=== PATIENT | male | born 1935 | race Caucasian/White ===

== ENCOUNTER 2019-03-05 12:40 | Emergency (ER) | payer OTHER ==
--- OUTSIDE RECORDS SUMMARY | 2019-03-05 12:43 | XMS REPORT ---
:1935 Author Organization [facility] Address [address] [place] [address] [address]. [address] [place] [address] Care Team Providers Name Role Phone Unavailable Unavailable Unavailable Payers Payer Name Policy Type Policy Number Effective Date Expiration Date Problems This patient has no known problems. Allergies, Adverse Reactions, Alerts Allergy Allergy Status Severity Reaction(s) Onset Inactive Treating Comments Name Type Date Date Clinician No Known DA Active U 2016-06 Allergies -26 00:00:0 0 Medications This patient has no known medications. Results Test Description Test Time Test Comments Text Results Atomic Results Result Comments - MRI L-SPINE W/O CONT 2019-02-27 15:46:00 Patient Name: ZEKE VAZQUEZ Unit No: [id number] EXAMS: CPT CODE: [id number] MRI L-SPINE W/O CONT [id number] DIAGNOSIS: There is a large postoperative epidural hematoma which extends from just distal to L2-3 to just below L5-S1. Severe posterior compression of the thecal sac is seen slightly greater on the left side. Central laminectomy has been performed from L3-4 to L5-S1. COMMENT: COMPARISON: December 02, 2018 Scans were performed in the sagittal and axial planes utilizing T1, T2 and inversion recovery images. Endplate and disc degeneration is seen from T12 to S1. There is a central disc herniation with cephalad extrusion at L3-4 and disc bulges at L1-2, L4-5 and L5-S1. The description these findings assumes a normal count of 5 lumbar type vertebra. at 1546 Reported and signed by: Aydin Tafoya MD CC: Ariela Chaney M.D. Technologist: NIKUNJ BARRERA MRI Transcribed D/ (4852) Emmy [facility] NAME: ZEKE VAZQUEZ [address] [facility] PHYS: Jose Rothman MD : 1935 AGE: 83 SEX: M [place], [place] [address] LOC: Y.513 A PHONE #: [phone] EXAM DATE: 02/26/2019 STATUS: ADM IN FAX #: [phone] RAD #: D/C DT PAGE 1 Signed Report Patient Name: ZEKE VAZQUEZ Unit No: [id number] EXAMS: CPT CODE: [id number] MRI L-SPINE W/O CONT [id number] <Continued> Orig Print D/T: S: 02/27/2019 (6301) [facility] NAME: ZEKE VAZQUEZ [address] [facility] PHYS: Jose Rothman MD : 1935 AGE: 83 SEX: M [place] [address] LOC: Y.513 A PHONE #: [phone] EXAM DATE: 02/26/2019 STATUS: ADM IN FAX #: [phone] RAD #: D/C DT PAGE 2 Signed Report BASIC METABOLIC PANEL 2019-02-26 10:19:00 Test Item Value Reference Range Comments SODIUM (test code=NA) 142 mEq/L 135-145 POTASSIUM (test code=K) 5.1 mEq/L 3.5-5.0 CHLORIDE (test code=CL) 102 mEq/L 100-115 CARBON DIOXIDE (test code=CO2) 27 mEq/L 22-31 GLUCOSE (test code=GLU) 134 mg/dL 65-110 BLOOD UREA NITROGEN (test 30 mg/dL 7-18 code=BUN) GLOMERULAR FILTRATION RATE (test 71.4 >60 Unit of measure: mL/min/1.73 code=GFR) [id number] Range:Healthy Adults >90 mL/min/1.73 m2 For Chronic Kidney Disease: Stage II Mild Decrease in GFR 60-90 Stage III Moderate Decrease in GFR 30-59 Stage IV Severe Decrease in GFR 15-29 Stage V Kidney Failure <15Unit of measure: mL/min/1.73 [id number] Range:Healthy Adults >90 mL/min/1.73 m2 For Chronic Kidney Disease: Stage II Mild Decrease in GFR 60-90 Stage III Moderate Decrease in GFR 30-59 Stage IV Severe Decrease in GFR 15-29 Stage V Kidney Failure <15 CREATININE (test code=CREAT) 1.0 mg/dL 0.7-1.3 CALCIUM (test code=CA) 9.2 mg/dL 8.4-10.2 BASIC METABOLIC [id number] 10:18:00 Test Item Value Reference Range Comments SODIUM (test code=NA) 142 mEq/L 135-145 POTASSIUM (test code=K) 5.1 mEq/L 3.5-5.0 CHLORIDE (test code=CL) 102 mEq/L 100-115 CARBON DIOXIDE (test code=CO2) 27 mEq/L 22-31 GLUCOSE (test code=GLU) 134 mg/dL 65-110 BLOOD UREA NITROGEN (test code=BUN) 30 mg/dL 7-18 GLOMERULAR FILTRATION RATE (test code=GFR) 71 ml/min >60 CREATININE (test code=CREAT) 1.0 mg/dL 0.7-1.3 CALCIUM (test code=CA) 9.2 mg/dL 8.4-10.2 - XR SPINE 1 V SPEC [id number] 09:18:00 Patient Name: ZEKE VAZQUEZ Unit No: [id number] EXAMS: CPT CODE: [id number] XR SPINE 1 V SPEC LEVEL 57115 1 LATERAL INTRAOPERATIVE VIEWS OF THE LUMBAR SPINE Image 1: Surgical instrumentation is seen at L3-L4 and L5-S1. at 0918 Reported and signed by: Paulo Gamez M.D. CC: Ariela Chaney M.D. Technologist: SKIP KAPADIA (RT.R) Transcribed D/T: (0918) Bria.SULEMA [facility] NAME: ZEKE VAZQUEZ [address] [facility] PHYS: Jose Rothman MD : 1935 AGE: 83 SEX: M [place], [place] [address] LOC: Y.O21 A PHONE #: [phone] EXAM DATE: 02/25/2019 STATUS: REG [facility] FAX #: [phone] RAD #: D/C DT PAGE 1 Signed Report Patient Name: ZEKE VAZQUEZ Unit No: [id number] EXAMS: CPT CODE: [id number] XR SPINE 1 V SPEC LEVEL 12373 <Continued> Orig Print D/T: S: 02/26/2019 (0921) [facility] NAME: ZEKE VAZQUEZ [address] [facility] PHYS: Jose Rothman MD : 1935 AGE: 83 SEX: M [place] [address] LOC: Y.O21 A PHONE #: [phone] EXAM DATE: 02/25/2019 STATUS: REG [facility] FAX #: [phone] RAD #: D/C DT PAGE 2 Signed ReportBASIC METABOLIC [id number] 11:20:00 Test Item Value Reference Range Comments SODIUM (test code=NA) 144 mmol/L 136-145 POTASSIUM (test code=K) 4.0 mmol/L 3.5-5.1 CHLORIDE (test code=CL) 106.0 mmol/L 98-107 CARBON DIOXIDE (test 31.8 mmol/L 21-32 code=CO2) GLUCOSE (test code=GLU) 101 mg/dL 70-110 BLOOD UREA NITROGEN (test 22 mg/dL 7-18 code=BUN) GLOMERULAR FILTRATION RATE 91.0 >60 Unit of measure: (test code=GFR) mL/min/1.73 [id number] Range:Healthy Adults >90 mL/min/1.73 m2 For Chronic Kidney Disease: Stage II Mild Decrease in GFR 60-90 Stage III Moderate Decrease in GFR 30-59 Stage IV Severe Decrease in GFR 15-29 Stage V Kidney Failure <15 CREATININE (test code=CREAT) 0.81 mg/dL 0.55-1.30 CALCIUM (test code=CA) 9.5 mg/dL 8.2-10.1 CBC W/AUTO [id number] 11:14:00 Test Item Value Reference Range Comments WHITE BLOOD CELL (test code=WBC) 7.3 K/mm3 5.7-10.5 RED BLOOD CELL (test code=RBC) 4.77 M/mm3 4.2-5.4 HEMOGLOBIN (test code=HGB) 15.2 g/dL 12-16 HEMATOCRIT (test code=HCT) 45.5 % 37-47 MEAN CELL VOLUME (test code=MCV) 95 fL 80-98 MEAN CELL HGB (test code=MCH) 31.9 pg 27-34 MEAN CELL HGB CONCENTRATION (test code=MCHC) 33.4 g/dL 30.8-34.1 RED CELL DISTRIBUTION WIDTH (test code=RDW) 12.0 % 11-16 PLT (test code=PLT) 213 K/mm3 130-400 MEAN PLATELET VOLUME (test code=MPV) 12.5 fL 8.9-12.1 NEUTROPHIL % (test code=NT%) 63.4 % 45-70 LYMPHOCYTE % (test code=LY%) 23.7 % 20-40 MONOCYTE % (test code=MO%) 9.6 % 3-10 EOSINOPHIL % (test code=EO%) 1.1 % 1-5 BASOPHIL % (test code=BA%) 0.7 % 0.0-1.1 NEUTROPHIL # (test code=NT#) 4.61 K/mm3 2.00-7.50 LYMPHOCYTE # (test code=LY#) 1.72 K/mm3 1.50-4.00 MONOCYTE # (test code=MO#) 0.70 K/mm3 0.2-0.8 EOSINOPHIL # (test code=EO#) 0.08 K/mm3 0.04-0.4 BASOPHIL # (test code=BA#) 0.05 K/mm3 0.02-0.10 MANUAL DIFF REQUIRED (test code=MDIFF) NO MANUAL DIFF NUCLEATED RED BLOOD CELL (test code=NRBC) 0 % 0-0 - MRI L-SPINE W/O [id number] 09:25:00 Patient Name: ZEKE VAZQUEZ Unit No: [id number] EXAMS: CPT CODE: [id number] MRI L-SPINE W/O CONT [id number] MRI OF THE LUMBAR SPINE: DIAGNOSIS: 1. At L1-2, moderate disc degeneration. 2 mm disc bulge. Moderate central canal stenosis. Marked bony right foraminal stenosis. Moderate left foraminal stenosis. Moderate facet arthropathy.2. At L2-3, moderate disc degeneration. 2 mm right foraminal disc bulge. Moderate central canal stenosis. Moderate bilateral facet arthropathy. Moderate right foraminal mild left foraminal stenosis. 3. At L3-4, moderate disc degeneration. Grade 1 spondylolisthesis of L3 on L4. There is a large approximately 1 cm cranially migrated posterior central, left paracentral and right posterior lateral disc extrusion which impinges the right L4 nerve root in the lateral gutter and flattens the ventral thecal sac. There is likely impingement of the left L4 nerve root as well. Marked central canal stenosis. Marked bilateral facet arthropathy. Moderate bilateral foraminal stenosis. 4. At L4-5, moderate disc degeneration. Marked hypertrophic central canal stenosis secondary to thickening of ligamenta flava and marked facet arthropathy. Moderate to marked bilateral foraminal stenosis. 5. AtL5-S1, marked disc degeneration. 3 mm disc osteophyte complex flattens the ventral thecal sac. Moderate central canal stenosis. Marked bilateral facet arthropathy. Moderate to marked bilateral foraminal stenosis secondary to endplate remodeling. COMMENT: COMPARISON: No prior exams available. Sagittal T1, T2 and STIR and axial T1 and T2-weighted sequences are obtained of the lumbar spine. The lumbar vertebrae are within normal limits in signal. The findings are as above. The conus is in the expected location. at 0977 Reported and signed by: Ana Maria De La Fuente MD CC: Romie Sanchez MD Technologist: Shikha Acosta(R) Transcribed D/T: 2018 (0925) LesterGVG [facility] NAME: ZEKE VAZQUEZ [address] [facility] PHYS: MATVA.[email or web address] - Romie Sanchez : 1934 AGE: 83 SEX: M [place], [place] [address] LOC: Y.MRI PHONE #: [phone] EXAM DATE: 12/02/2018 STATUS: DEP CLI FAX #: [phone] RAD #: D/C DT PAGE 1 Signed Report Patient Name: ZEKE VAZQUEZ Unit No: [id number] EXAMS: CPT CODE: [id number] MRI L-SPINE W/O CONT [id number] <Continued&gt ;Orig Print D/T: S: 12/03/2018 (0928) [facility] NAME: ZEKE VAZQUEZ [address] [facility] PHYS: MATVA.01 - Romie Sanchez : 1934 AGE: 83 SEX: M [place], [place] [address] LOC: Y.MRI PHONE #: [phone] EXAM DATE: 12/02 STATUS: DEP CLI FAX #: [phone] RAD #: D /C DT PAGE 2 Signed Report
--- OUTSIDE RECORDS SUMMARY | 2019-03-05 12:43 | XMS REPORT ---
:1935 Author Organization [employer] Care Team Providers Name Role Phone Phuc Lewis Provider Role Unavailable Allergies, Adverse Reactions, Alerts Substance Reaction Event Type N.K.D.A. Info Not Available Non Drug Allergy Problems Problem Type Condition Code Onset Dates Condition Status Problem Primary osteoarthritis of left knee M17.12 Active Problem Other chronic pain G89.29 Active Assessment Other chronic pain G89.29 Active Assessment Primary osteoarthritis of left knee M17.12 Active Assessment Pain in left knee M25.562 Active Medications Medication Code Code Instructions Start End Status Dosage System Date Date Metoprolol FORMERLY NAMED [facility] 57264284763 50 MG Oral Active TK 1 T PO Succinate ER ONCE D. Omeprazole FORMERLY NAMED [facility] 71744995226 40 MG Oral Active TK 1 C PO QD Clopidogrel FORMERLY NAMED [facility] 57000997832 75 MG Oral Active TK 1 T PO Bisulfate QD FORMERLY NAMED [facility] 08471530551 81 MG Orally January 08, Active 1 tablet Once a day 2017 Amlodipine FORMERLY NAMED [facility] 07322375296 2.5 MG Oral Active TK 1 T PO Besylate QD Piroxicam FORMERLY NAMED [facility] 53025705288 20 MG Oral Active TK 1 C PO QD Results No Known Results Summary Purpose [employer] Submission
--- NOTE | 2019-03-05 16:09 | RAD REPORT ---
EXAM DESCRIPTION: US - Extremity Venous Uni Ltd - 03/05/2019 4:02 pm CLINICAL HISTORY: SWELLING Leg swelling and edema. COMPARISON: No comparisons FINDINGS: Right lower extremity venous system was interrogated with Doppler technique. Normal flow, compressibility and augmentation was noted. There is no DVT present. IMPRESSION: No evidence of right lower extremity deep venous thrombosis.
--- NOTE | 2019-03-05 16:34 | EDPHYS ---
Physician Documentation [facility] Name: Jatin Menjivar Age: 83 yrs Sex: Male : 1935 Arrival Date: 03/05/2019 Time: 12:42 Bed 20 Private MD: ED Physician David Freeman HPI: 03/05 14:44 This 83 yrs old Male presents to ER via Wheelchair with complaints of Leg rn Swelling. 14:44 The patient presents with swelling. The complaints affect the. Onset: The rn symptoms/episode began/occurred today. Modifying factors: The symptoms are alleviated by nothing. the symptoms are aggravated by nothing. Severity of symptoms: At their worst the symptoms were moderate, in the emergency department the symptoms are unchanged. The patient has not experienced similar symptoms in the past. Reports had back surgery last week, takes aspirin and plavix, today noticed increased leg swelling on RLE, no pain, no redness, no fever, has been using stockings as told to do so. No trauma. Has been ambulatory, fixed breakfast today, and was outside for a while when noticed swelling.. Historical: - Allergies: 12:57 No Known Allergies; hb - Home Meds: 12:57 atorvastatin 80 mg Oral tab 1 tab once daily [Active]; clopidogrel 75 mg Oral tab 1 tab hb once daily [Active]; metoprolol succinate 50 mg Oral Tb24 1 tab once daily [Active]; ranitidine HCl 150 mg Oral tab 1 tab once daily [Active]; 12:58 aspirin 81 mg Oral chew 1 tab once daily [Active]; hb - PMHx: 12:57 CVA; GERD; Hyperlipidemia; Hypertension; hb - PSHx: 12:57 Knee surgery; hb - Immunization history:: Adult Immunizations up to date. - Social history:: Smoking status: Patient/guardian denies using tobacco. - Ebola Screening: : No symptoms or risks identified at this time. - Family history:: not pertinent. - Hospitalizations: : No recent hospitalization is reported. ROS: 14:44 Constitutional: Negative for fever, chills, and weight loss, Eyes: Negative for injury, rn pain, redness, and discharge, Cardiovascular: Negative for chest pain, palpitations Respiratory: Negative for shortness of breath, cough, wheezing, and pleuritic chest pain, Abdomen/GI: Negative for abdominal pain, nausea, vomiting, diarrhea, and constipation, Back: Negative for injury and pain, MS/Extremity: Negative for injury and deformity, Skin: Negative for injury, rash, and discoloration, Neuro: Negative for headache, weakness, numbness, tingling, and seizure. Exam: 14:44 Constitutional: This is a well developed, well nourished patient who is awake, alert, rn and in no acute distress. Head/Face: Normocephalic, atraumatic. ENT: MMM Cardiovascular: Regular rate and rhythm. No pulse deficits. Respiratory: Lungs have equal breath sounds bilaterally, clear to auscultation. No increased work of breathing, no retractions or nasal flaring. Abdomen/GI: soft, non-tender MS/ Extremity: Pulses equal, no cyanosis. Neurovascular intact. Full, normal range of motion. + non-pitting edema RLE without redness/warmth/open wounds. Neuro: Awake and alert, GCS 15, oriented to person, place, time, and situation. Cranial nerves II-XII grossly intact. Motor strength 5/5 in all extremities. Sensory grossly intact. Cerebellar exam normal. Vital Signs: 12:57 BP 152 / 67; Pulse 70; Resp 16; Temp 97.4; Pulse Ox 100% on R/A; Weight 90.72 kg; hb Height 5 ft. 11 in. (180.34 cm); Pain 0/10; 14:33 BP 168 / 55; Pulse 55; Resp 16; Pulse Ox 99% ; mh5 15:50 BP 149 / 52; Pulse 55; Resp 17; Pulse Ox 97% on R/A; mh5 12:57 Body Mass Index 27.89 (90.72 kg, 180.34 cm) hb MDM: 14:14 Patient medically screened. rn 16:31 Differential diagnosis: DVT, edema. Data reviewed: vital signs, nurses notes, rn radiologic studies, doppler, and as a result, I will discharge patient. Counseling: I had a detailed discussion with the patient and/or guardian regarding: the historical points, exam findings, and any diagnostic results supporting the discharge/admit diagnosis, radiology results, the need for outpatient follow up, to return to the emergency department if symptoms worsen or persist or if there are any questions or concerns that arise at home. Response to treatment: There is no appreciated change of the patient's symptoms at this time, and as a result, I will discharge patient. Special discussion: I discussed with the patient/guardian in detail that at this point there is no indication for admission to the hospital. It is understood, however, that if the symptoms persist or worsen the patient needs to return immediately for re-evaluation. 03/05 14:26 Order name: Extremity Venous Uni Ltd ; Complete Time: 16:23 rn Administered Medications: No medications were administered Disposition: 03/05/19 16:33 Discharged to Home. Impression: Edema, unspecified. - Condition is Stable. - Discharge Instructions: Edema. - Medication Reconciliation Form, Thank You Letter, Antibiotic Education, Prescription Opioid Use form. - Follow up: Private Physician; When: As needed; Reason: Recheck today's complaints, Re-evaluation by your physician. - Problem is new. - Symptoms have improved. Signatures: Dispatcher [employer] EDMS David Freeman MD MD rn Baxter, Heather, RN RN Corrections: (The following items were deleted from the chart) 16:57 16:33 03/05/2019 16:33 Discharged to Home. Impression: Edema, unspecified. Condition is rn Stable. Forms are Medication Reconciliation Form, Thank You Letter, Antibiotic Education, Prescription Opioid Use. Follow up: Private Physician; When: As needed; Reason: Recheck today's complaints, Re-evaluation by your physician. Problem is new. Symptoms have improved. rn
--- NOTE | 2019-03-05 16:34 | ER ---
Nurse's Notes [facility] Name: Jatin Menjivar Age: 83 yrs Sex: Male : 1935 Arrival Date: 03/05/2019 Time: 12:42 Bed 20 Private MD: Diagnosis: Edema, unspecified Presentation: 03/05 12:54 Presenting complaint: Right lower extremity swelling upon waking today. Pt had back hb surgery Feb 25, had second surgery on same day for blood clot in back. Transition of care: patient was not received from another setting of care. Onset of symptoms was March 05, 2019. Risk Assessment: Do you want to hurt yourself or someone else? Patient reports no desire to harm self or others. Initial Sepsis Screen: Does the patient meet any 2 criteria? No. Patient's initial sepsis screen is negative. Does the patient have a suspected source of infection? No. Patient's initial sepsis screen is negative. Care prior to arrival: None. 12:54 Method Of Arrival: Wheelchair hb 12:54 Acuity: ZOYA 3 hb Historical: - Allergies: 12:57 No Known Allergies; hb - Home Meds: 12:57 atorvastatin 80 mg Oral tab 1 tab once daily [Active]; clopidogrel 75 mg Oral tab 1 tab hb once daily [Active]; metoprolol succinate 50 mg Oral Tb24 1 tab once daily [Active]; ranitidine HCl 150 mg Oral tab 1 tab once daily [Active]; 12:58 aspirin 81 mg Oral chew 1 tab once daily [Active]; hb - PMHx: 12:57 CVA; GERD; Hyperlipidemia; Hypertension; hb - PSHx: 12:57 Knee surgery; hb - Immunization history:: Adult Immunizations up to date. - Social history:: Smoking status: Patient/guardian denies using tobacco. - Ebola Screening: : No symptoms or risks identified at this time. - Family history:: not pertinent. - Hospitalizations: : No recent hospitalization is reported. Vital Signs: 12:57 BP 152 / 67; Pulse 70; Resp 16; Temp 97.4; Pulse Ox 100% on R/A; Weight 90.72 kg; hb Height 5 ft. 11 in. (180.34 cm); Pain 0/10; 14:33 BP 168 / 55; Pulse 55; Resp 16; Pulse Ox 99% ; mh5 15:50 BP 149 / 52; Pulse 55; Resp 17; Pulse Ox 97% on R/A; mh5 12:57 Body Mass Index 27.89 (90.72 kg, 180.34 cm) ED Course: 12:42 Patient arrived in ED. rg4 12:56 Triage completed. 12:57 Arm band placed on. 14:14 David Freeman MD is Attending Physician. rn 14:32 Patient has correct armband on for positive identification. Bed in low position. Call [facility] light in reach. Side rails up X 1. Adult w/ patient. Pulse ox on. NIBP on. 15:44 Jacob Maria, RN is Primary Nurse. sg 15:45 Awaiting: ultrasound. sg 16:08 Extremity Venous Uni Ltd US In Process Unspecified. EDMS Administered Medications: No medications were administered Outcome: 16:33 Discharge ordered by . rn 16:57 Patient left the ED. rn Signatures: Dispatcher [employer] EDMS Jacob Maria RN RN David Freeman MD MD rn Baxter, Heather, RN RN hb Garcia, Rubi 4 Mckenzie Zapien [facility]
[2019-03-05 17:31] VITALS: TEMP 97.4
[2019-03-05 17:33] VITALS: BP 149/52; O2SAT 97
== END 2019-03-05 16:57 | disposition home or self-care (01) ==
LOC: ER 12:40
DX: R60.9 Edema, unspecified (principal); I10 Essential (primary) hypertension; E78.5 Hyperlipidemia, unspecified; Z79.82 Long term (current) use of aspirin; Z86.73 Personal history of transient ischemic attack (TIA), and cerebral infarction without residual deficits
CPT/HCPCS: 93971; 99283

== ENCOUNTER 2020-10-02 07:46 | Day surgery (SDC) | payer OTHER ==
[2020-09-18 09:05] LABS: Absolute Lymphocytes (CBC) 1.9 K/uL (0.7-4.9); Basophils % 0.3 % (0-1.3); Hematocrit 41.8 % (39.6-49.0); Lymphocytes % 26.3 % (15.3-44.8); MPV 11.4 fL (7.6-11.3); RBC Red Blood Cell Count 4.46 M/uL (4.33-5.43)
[2020-09-18 09:19] LABS: BUN Blood Urea Nitrogen 26 mg/dL (7-18); Bicarbonate 29 mmol/L (21-32); Glucose Level 80 mg/dL (74-106); Potassium 4.1 mmol/L (3.5-5.1); Sodium Level 143 mmol/L (136-145)
--- NOTE | 2020-09-18 09:35 | RAD REPORT ---
EXAM DESCRIPTION: RAD - Chest Pa And Lat (2 Views) - 09/18/2020 9:01 am CLINICAL HISTORY: PREOP, pending hemorrhoid surgery, hypertension, prior CVA COMPARISON: Two view chest May 2017 TECHNIQUE: Frontal and lateral views of the chest were obtained. FINDINGS: The lungs are clear. Interstitial pattern is similar to comparison. Fullness of each hilu m also stable over this long interval. Heart size is normal and central vasculature is within normal limits. No pleural effusion or pneumothorax seen. No acute bony finding noted. No aortic abnormali ty. IMPRESSION: No acute cardiopulmonary process. No significant change from comparison study.
[2020-10-02] MEDS ORDERED: CEFOXITIN/SWI 1gm 1 GM/10 ML SYR ONE (08:45)
[2020-10-02] MEDS ORDERED: Ringers Lactate 1,000 ML IV ONE (08:45)
[2020-10-02] MEDS ORDERED: FENTANYL CITR 100 MCG/2 ML ONE (09:39)
[2020-10-02] MEDS ORDERED: propofoL 200 MG/20 ML VIAL IV ONE (09:39)
[2020-10-02] MEDS ORDERED: LIDOCAINE 2% MPF 5 ML VIAL ONE (09:41)
[2020-10-02] MEDS ORDERED: dexAMETHasone 10 MG/ML VIAL ONE (10:40)
[2020-10-02] MEDS ORDERED: GLYCOPYRROLATE 0.2 MG/ML SYR ONE (10:51)
[2020-10-02] MEDS ORDERED: KETOROLAC 30 MG/ML INJ ONE (11:08)
--- NOTE | 2020-10-02 12:11 | OP ---
Date of Procedure: 10/02/2020 Surgeon: Danilo Mooney MD Post Graduate Intern: None. Preoperative Diagnosis: Symptomatic hemorrhoids. Postoperative Diagnosis: Symptomatic hemorrhoids. Procedures: Exam under anesthesia, rigid proctoscopy, hemorrhoidectomy x3. Estimated Blood Loss: Minimal. Specimen: Hemorrhoid x3. Findings: Hemorrhoids with scattered blood clots in the left anterior, left lateral and posterior mi dline. Finding as above. Anesthesia: General. Complications: None. Disposition: The patient tolerated the procedure in stable condition and taken to Recovery in good g eneral condition. Procedure In Detail: The patient was brought to the OR and placed in supine position. General anest hesia begun. The patient was placed in the lithotomy position, prepped and draped in the usual steri le fashion and then exam under anesthesia revealed 3 internal and external components to hemorrhoids in the left anterior, left lateral and posterior midline. They were all removed with Harmonic Scalpe l. Bleeding was controlled with cautery and then a Marcaine 0.5% was infiltrated for postop pain con trol and anal packing consisting of Gelfoam, Surgicel, and Vaseline gauze was placed in the anal mathew l. Sterile dressing was applied. The patient was awakened and taken to Recovery in good general con dition. Discharge Note: The patient will go to Day Surgery and home when stable. Disposition: Home. Condition: Stable. Discharge Instructions: Resume home medications and diet. Activity as tolerated. No heavy lifting. Remove outer dressing in the a.m. Sitz baths q.i.d. High-fiber diet. Metamucil 1 tablespoon p.o. t.i.d., Colace 100 mg p.o. b.i.d., Procto-HC 2.5% to anus b.i.d., Tylenol No.3 one tablet p.o. q.4 p .r.n. pain. Follow up in my office in 2 weeks. Call for appointment. TOM/MARK Voice ID: [id number] Report ID: [id number]
[2020-10-02 15:03] VITALS: BP 183/73; TEMP 96.9; O2SAT 97
== END 2020-10-02 13:18 | disposition home or self-care (01) ==
LOC: OR 07:46
PROVIDERS: ATTEND Surgery
PROC: 06BY4ZC Excision of Hemorrhoidal Plexus, Percutaneous Endoscopic Approach (ICD-10-PCS; 2020-10-02)
PROC: 0DJD8ZZ Inspection of Lower Intestinal Tract, Via Natural or Artificial Opening Endoscopic (ICD-10-PCS; principal; 2020-10-02 09:45)
DX: K64.8 Other hemorrhoids (principal); K64.4 Residual hemorrhoidal skin tags; U07.1 COVID-19
CPT/HCPCS: 85025; 80048; 36415; 88304; 71046; 45300; 46260; U0003 ×2; J2704; J3010; J1100; J7120

== ENCOUNTER 2022-03-20 07:43 | Day surgery (SDC) | payer OTHER ==
[2022-03-20] MEDS ORDERED: Ringers Lactate 1,000 ML IV ONE (08:08)
[2022-03-20] MEDS ORDERED: propofoL 200 MG/20 ML VIAL IV ONE ×2 (08:44→08:45)
[2022-03-20] MEDS ORDERED: LIDOCAINE 1% MPF 5 ML VIAL ONE (08:44)
--- NOTE | 2022-03-20 09:16 | ENDO RPT ---
[address], [address] EGD PROCEDURE REPORT EXAM DATE: 03/20/2022 PATIENT NAME: Jatin Menjivar MR#: [id number] BIRTHDATE: 1935 ATTENDING: Tien Kiser Dr STATUS: outpatient TABLE GAMES SHIFT MANAGER: Jeanie Hernandez RN and Devi Mota INDICATIONS: The patient is a 86 yr old Male here for an EGD due to GERD and follow-up of Stephens's Esophagus PROCEDURE PERFORMED: EGD with biopsy MEDICATIONS: Per Anesthesia. TOPICAL ANESTHETIC: none CONSENT: The patient understands the risks and benefits of the procedure and understands that these risks include, but are not limited to: sedation, allergic reaction, infection, perforation and/or bleeding. Alternative means of evaluation and treatment include, among others: physical exam, x-rays, and/or surgical intervention. The patient elects to proceed with this endoscopic procedure. DESCRIPTION OF PROCEDURE: During intra-op preparation period all mechanical medical equipment was checked for proper function. Hand hygiene and appropriate measures for infection prevention was taken. Procedure, possible complications, and alternatives including but not limited to the possibility of bleeding, perforation, tear, infection, sepsis, need for surgery, need for blood transfusion, and anesthesia related complications were explained to the patient. After the risks, benefits and alternatives of the procedure were thoroughly explained, Informed consent was verified, confirmed and timeout was successfully executed by the treatment team. The patient was placed in the left lateral position. The patient was anesthetized with topical anesthesia. Through the anesthetized oropharyngeal area, the scope was passed without any difficulty. The EG-[id number] ([id number]) endoscope was introduced through the mouth and advanced to the second portion of the duodenum. Retroflexed views revealed no abnormalities. The gastroscope was then slowly withdrawn and removed. Stephens's esophagus was found in the lower esophagus. Multiple biopsies were obtained and sent to pathology. LA Class B esophagitis was found in the lower esophagus. Moderate gastritis was found in the body and the antrum of the stomach. Multiple biopsies were obtained and sent to pathology. Nodular mucosa was found in the body of the stomach. Mild duodenitis in the bulb / descending duodenum. ADVERSE EVENTS: There were no complications. IMPRESSIONS: 1. 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 LA class B esophagitis in the lower esophagus 3. Moderate gastritis in the body and the antrum of the stomach, s/p biopsies 4. Nodular mucosa in the body of the stomach 5. Mild duodenitis in the bulb / descending duodenum RECOMMENDATIONS: 1. await biopsy results 2. acid suppression therapy 3. anti-reflux regimen REPEAT EXAM: Return in 3 year(s) for EGD. Tien Kiser Dr eSigned: Tien Kiser Dr 03/20/2022 9:16 AM cc: CPT CODES: ICD9 CODES: PATIENT NAME: Jatin MenjivarPetra MR#: [id number]
[2022-03-20 10:33] VITALS: BP 172/67; TEMP 97.2; O2SAT 97
== END 2022-03-20 09:50 | disposition home or self-care (01) ==
LOC: OR 07:43
PROVIDERS: ATTEND Internal Medicine Gastroenterology
PROC: 0DB68ZX Excision of Stomach, Via Natural or Artificial Opening Endoscopic, Diagnostic (ICD-10-PCS; 2022-03-20)
PROC: 0DB58ZX Excision of Esophagus, Via Natural or Artificial Opening Endoscopic, Diagnostic (ICD-10-PCS; principal; 2022-03-20 09:30)
DX: K22.70 Barrett's esophagus without dysplasia (principal); K21.9 Gastro-esophageal reflux disease without esophagitis; Z87.19 Personal history of other diseases of the digestive system; E78.5 Hyperlipidemia, unspecified; I10 Essential (primary) hypertension; Z95.5 Presence of coronary angioplasty implant and graft; Z86.73 Personal history of transient ischemic attack (TIA), and cerebral infarction without residual deficits; K29.50 Unspecified chronic gastritis without bleeding; K29.80 Duodenitis without bleeding
CPT/HCPCS: 88312; 88313; 88305; 43239; J2704; J2001; J7120